=== PATIENT | female | born 1950 | race Caucasian/White ===

== ENCOUNTER 2016-08-22 10:59 | Day surgery (SDC) | payer MEDICARE, OTHER ==
[~2016-08-22 10:59] MED LIST: ACTOS45 MG; ARIMIDEX1 M1 PO; ASPIRIN81 M1 PO; COZAAR100 M1 PO; ECOTRIN81 MG; GLIPIZIDE10 MG; HUMULIN N100 UNIT/2 SC; HYDROCHLOROTH12.5 MG; LASIX20 M1 PO; LIPITOR20 M1 PO; LISINOPRIL10 MG; METFORMIN HCL500 M2 PO; MULTI VITAMIN1 EAC2 PO; NORCO 5/325 TAB1 TAB PO; NOVOLOG100 UNITS/ SC; VITAMIN D1000 UNI2 PO; VITAMIN D31000 UNI3
--- NOTE | 2016-08-22 19:17 | NUR ---
RN BEDSIDE GLUCOSE CHECK. PATIENT REFUSED INSULIN. STATES SHE WILL TAKE ALL MEDICATIONS WHEN SHE GOES HOME. PATIENT HAS ORDER TO DISCHARGE AFTER 1900. PATIENT'S BLOOD SUGAR REPORTED TO NIGHT RN.
--- NOTE | 2016-08-22 20:00 | NUR ---
VIRTUAL CARE NOTE: DC TEACHING COMPLETED. PT DENIES ANY QUESTIONS OR CONCERNS. V/U OF INSTRUCTIONS. FLOOR RN NOTIFIED TO COMPLETE DC PAPERWORK WITH PATIENT.
== END 2016-08-22 20:37 ==
LOC: SRG 10:59 → SHSC 11:00 → ORE 12:52 → PACU 14:32 → 5WD 16:00
PROVIDERS: Student in an Organized Health Care Education/Training Program
PROC: 0GTG0ZZ Resection of Left Thyroid Gland Lobe, Open Approach (ICD-10-PCS; principal; 2016-08-22)
DX: E04.1 Nontoxic single thyroid nodule (principal); I10 Essential (primary) hypertension; E78.00 Pure hypercholesterolemia, unspecified; E11.9 Type 2 diabetes mellitus without complications; Z87.891 Personal history of nicotine dependence; Z88.0 Allergy status to penicillin; Z90.710 Acquired absence of both cervix and uterus; Z90.12 Acquired absence of left breast and nipple; Z85.3 Personal history of malignant neoplasm of breast; Z98.890 Other specified postprocedural states
CPT/HCPCS: J1100